=== PATIENT | male | born 1965 | race Caucasian/White ===

== ENCOUNTER → 2024-10-03 11:39 | Outpatient (REF) | payer BC, SELFPAY | LOC: DHSLP 11:39 | PROVIDERS: ATTENDING PHYSICIAN Internal Medicine Critical Care Medicine; FAMILY PHYSICIAN Nurse Practitioner Family | DX: G47.33 Obstructive sleep apnea (adult) (pediatric) (principal) | CPT/HCPCS: 95811 ==